=== PATIENT | female | born 1990 | race Caucasian/White ===

== ENCOUNTER 2022-02-06 10:02 | Emergency (ER) | payer BC ==
[2022-02-06] MEDS ORDERED: predniSONE 20 MG TAB ONE (10:24)
== END 2022-02-06 11:35 | disposition home or self-care (01) ==
LOC: ERS 10:02
DX: T78.2XXA Anaphylactic shock, unspecified, initial encounter (principal)
CPT/HCPCS: 96372; 96374; 96375; J7512

== ENCOUNTER 2022-02-10 17:18 | Emergency (ER) | payer BC ==
[2022-02-10] MEDS ORDERED: diphenhydrAMINE 50 MG/ML VIAL ONE (17:27)
[2022-02-10] MEDS ORDERED: Famotidine/PF 20 mg/2ml Vial ONE (17:27)
[2022-02-10] MEDS ORDERED: methylPREDNISolone Sod Succ/PF 125 MG/2 ML VIAL ONE (17:27)
== END 2022-02-10 19:19 | disposition home or self-care (01) ==
LOC: ERS 17:18
DX: S80.862A Insect bite (nonvenomous), left lower leg, initial encounter (principal); W57.XXXA Bitten or stung by nonvenomous insect and other nonvenomous arthropods, initial encounter
CPT/HCPCS: 96374; 96375; J1200; J2930; S0028